=== PATIENT | female | born 1940 | race Caucasian/White ===

== ENCOUNTER 2016-09-21 09:45 | Day surgery (SDC) | payer MEDICARE ==
[~2016-09-21] VITALS: Ht 167.6 cm; Wt 95.2 kg
[~2016-09-21 09:45] MED LIST: ASPI-973 PO; CALC-78 PO; CeFAZolin Inj 2 GM in IV Premix 1 EACH IV ONE; DICL75TA6 PO; IRON18TA PO; LACT1CAP67 PO; LEFL20TA18 PO; LISI10TA PO; METF500T4 PO; MIRA50TA PO; MULT-1018 PO; OMEP20CA11 PO; PIOG30TA2 PO; SULF1TAB34 PO
[2016-09-21] MEDS ORDERED: fentaNYL-PF 50 mCg/mL 2 mL Inj ONE (09:46)
[2016-09-21] MEDS: Lactated Ringer's 1,000 ML IV SCH ×2 (09:59→10:52)
[2016-09-21] MEDS ORDERED: CIPR250T3 PO (10:03)
[2016-09-21] MEDS ORDERED: OXYB10TA PO (10:03)
[2016-09-21 10:09] VITALS: BP 134/65; PULSE 99; RESP 17; O2SAT 92
--- NOTE | 2016-09-21 10:41 | PCM.HPANE ---
Patient Data Date of Service: Sep 21, 2016 Surgeon Admitting Provider: Attending Provider:Patricia Good MD Primary Care Physician:Enid Oseguera Other Provider:Carlyn Sánchez Anesthesia Reason for Visit Urge Incontinence, Urinary Frequency Ht/WT & BMI Height (Feet): 5 Height (Inches): 6 Weight (Kilograms): 95.2 Body Mass Index 33.00 Allergies Coded Allergies: No Known Allergies (Unverified , 09/20/16) Past Anesthesia History Anesthesia History: Denies:: Abnormal Airway, Anesthesia Reactions, Fam Anesthesia Reaction, Fam Malignant Hypertherm, Malignant Hyperthermia Diabetes History Hx Diabetes?: Yes Type of Diabetes: Type II Glycemic Control: Oral Medication Current Bedside Blood Glucose: 97 MRSA MRSA: No Medications Blood Thinner: Aspirin Hypertension Medication: Yes (LISINOPRIL) Home Meds Incl Beta Vannesa: No Reported Medications Oxybutynin Chloride ER 10 Mg Tab.er.2410 Mg PO DAILY #90 09/21/16 Ciprofloxacin 250 Mg Kvzorr481 Mg PO BID #14 09/21/16 Lactobacillus Combination No.4 (Probiotic)1 Each Capsule1 Each PO DAILY 09/20/16 Omeprazole 20 Mg Capsule.dr20 Mg PO DAILY Ref 0 09/20/16 Multivitamin (Multi Vitamin Daily)1 Each Tablet1 Each PO DAILY 30 Days Ref 0 09/20/16 Metformin 500 Mg Qvbnfz444 Mg PO BID Ref 0 09/20/16 Lisinopril 10 Mg Odzyyr94 Mg PO DAILY 30 Days Ref 0 09/20/16 Leflunomide 20 Mg Qmxjwz88 Mg PO DAILY 09/20/16 Iron 18 Mg Dbyudv79 Mg PO DAILY 09/20/16 Diclofenac ER 75 Mg Dbogxe98 Mg PO BID 09/20/16 Calcium Carbonate/Vitamin D3 (Calcium 500 + Vit D Caplet)1 Each Tablet1 Each PO DAILY 09/20/16 Sulfamethoxazole/Trimeth 400-80 mg (Bactrim 400-80 mg)1 Each Tablet1 Tablet PO BID Ref 0 09/20/16 Aspirin 81 Mg Lnjaar21 Mg PO DAILY Ref 0 09/20/16 Pioglitazone (Actos)30 Mg Rmunap50 Mg PO DAILY Ref 0 09/20/16 Discontinued Reported Medications Mirabegron ER (Myrbetriq)50 Mg Oamctu77 Mg PO DAILY 09/20/16 History History of ENT Problems?: No HEENT History: Denies:: Abnormal Airway Teeth Condition: Tooth Decay Hx of Heart Problems?: Yes Cardiovascular History: Positive for:: Hypertension (HYPERLIPIDEMIA) Denies:: Chest Pain Heart Murmur Other Cardiac History: hyperlipidemia; no SOB Hx of Respiratory Problem?: No Respiratory History: Denies:: Use of C-PAP Machine Hx Neurologic Problems?: No Neurological History: Denies:: CVA Seizures Hx of GI Problems?: Yes Gastrointestinal History: Positive for:: Gastroesphageal Reflux (HX PUD W/ ESOPHAGEAL ULCERATION) Other GI Pertinent History: HX OF C. DIFF; esophageal ulcer Hx of Problems?: Yes Other Pertinent History: C/OF LUTS-NOCTURIA Female Hx: Denies:: Currently Skin History: Denies:: History Skin Disorders? Pressure Ulcers Hx Musculoskeletal Problems?: Yes Musculoskeletal History: Positive for:: Degenerative Joint Osteoarthritis Denies:: Back Injury (C/OF BACK PAIN) Hx of Psycho/Social Problems?: No Hx Surgeries?: No Hx Any Other Health Problems?: Yes Other History: Denies:: Cancer Endocrine Disease Hospitalization Thyroid Disease History Blood Transfusions: Denies:: Blood Transfusions Hx Diabetes: YesBedside Blood Glucose: 97 Hx Alcohol Use: NoHx Substance Use: No Smoking Status: Never Smoker Stop/Bang S-Snoring: Do You Snore Loudly: No T-Tired: feel tired, fatigued: No O-Obsered: Observed not breath: No P-Blood Pressure: treated: Yes B- Body Mass Index > 35 kg/m2: No A- Age over 50: Yes N- Neck Large Circumference: No G- Gender Male: No HEIDI Total Score: 2 HEIDI Risk Assessment: Low Risk, <3 Yes Risk Assessment Category Category 1A: Patient has history of documented sleep apnea, and HAS NOT received any narcotic, sedative or anesthesia administration during this stay. Category 1B: Patient has history of documented sleep apnea, and HAS received any narcotic , sedative or anesthesia administration during this stay Category 2: Patient has SUSPECTED Obstructive Sleep Apnea, and HAS received any narcotic , sedative or anesthesia administration during this stay. Category 3: Patient has SUSPECTED Obstructive Sleep Apnea and HAS NOT received narcotic, sedative or anesthesia administration during this stay. Category 4: Outpatient in Procedural Areas with known sleep apnea or who screen positive for High Risk via the STOP/BANG questionnaire. Exam Exam Vital Signs Vital Signs Date Time Temp Pulse Resp B/P Pulse Ox O2 Delivery O2 Flow Rate FiO2 09/21/16 10:09 36.1 99 17 134/65 92 Room Air General Appearance: Alert, Oriented X3, Cooperative, No Acute Distress HEENT/AIRWAY: MP 3, Neck Movement (FROM, SHORT, THICK), Mouth Opening (<3), Other (TMD<3) Lungs: Diminished (BIBASILAR SEVERELY DIMINISHED) Heart: Exam Unremarkable, Regular Rate/Rhythm, Normal S1, Normal S2 Meds/Labs/Diagnostics Admission Meds Current Medications Lactated Ringer's (Lr) 1,000 ml @ 120 mls/hr Q8H20M IV Last administered on t 09:59; Start 09/21/16 at 05:00; Stop 09/21/16 at 13:19 Bedside Blood Glucose: 97 Plan Impression Patient chart reviewed, patient interviewed and anesthestic plan with risks, benefits, and alternatives discussed, and informed consent obtained. NPO Status: 09/20/16 ASA Physical Status: ASA3 Severe Disease Anesthetic Plan: MAC Bene/Risks/Altern/Consents: Yes HP Complete Prior to Induction: Yes Other Awareness during MAC addressed. Possible need to converse with surgeon during procedure addressed. GA backup addressed. Chalo Haq MD Sep 21, 2016 10:41
[2016-09-21] MEDS ORDERED: Bupivacaine-MPF 0.5% W/EPI 30 mL Inj INFILTRATE ONE (11:09)
[2016-09-21] MEDS ORDERED: Gentamicin 40 mg/mL 2 mL Inj IRRIGATION ONE (11:09)
[2016-09-21] MEDS ORDERED: Vancomycin 1,000 mg Inj IRRIGATION ONE (11:10)
[2016-09-21] MEDS ORDERED: HYDROcodone-APAP 5-325 mg Tablet PO PRN (12:05)
[2016-09-21] MEDS ORDERED: Ondansetron 8 mg ODT Tablet PO PRN (12:05)
[2016-09-21 12:10] VITALS: BP 145/78; PULSE 97; RESP 16; O2SAT 92
[2016-09-21 13:00] VITALS: PULSE 88; RESP 16; O2SAT 90
[2016-09-21 13:40] VITALS: BP 100/81; PULSE 80; RESP 16; O2SAT 95
--- NOTE | 2016-09-21 17:52 | PCM.ANEP2 ---
Post Anesthesia Evaluation ASA/CMS Post Anesthesia VS in Patient's Normal Range?: Yes Resp Stable; Airway Patent?: Yes CV Function & Hydration Stable: Yes Mental Status Recovered?: Yes Pain control Satisfactory?: Yes N/V Control Satisfactory?: Yes Chalo Haq MD Sep 21, 2016 17:52
--- NOTE | 2016-09-21 17:52 | PCM.ANEP1 ---
Post Anesthesia Phase 1 PACU Phase 1 Assessment Date of Service: Sep 21, 2016 Vital Signs Vital Signs Date Time Temp Pulse Resp B/P Pulse Ox O2 Delivery O2 Flow Rate FiO2 09/21/16 13:40 80 16 100/81 95 Room Air 09/21/16 13:00 88 16 90 Room Air 09/21/16 12:10 36.9 97 16 145/78 92 Room Air 09/21/16 10:09 36.1 99 17 134/65 92 Room Air Anesthetic Administered: MAC Level of Alertness: Awake, talking CARRASCO's with Equal Strength: Yes Pain: No Pain Scale Score: 0 Nausea or Vomiting: No Oxygen Delivery: Simple Mask Lungs: Diminished (BIBASILAR SEVERELY DIMINISHED) Chalo Haq MD Sep 21, 2016 17:52
--- NOTE | 2016-09-22 09:43 | OP ---
[address] [address] OPERATIVE REPORT PATIENT: AALIYAH GOLDEN : 1940 MR#: [id number] ADMIT: 09/21/2016 JOB ID: [id number] DATE OF SURGERY: 09/21/2016 PROCEDURE NAME: 1 Stage 1 InterStim implant to include transforaminal placement of a sacral neural electrode. 2 fluoroscopy imaging and guidance SURGEON: Patricia Good MD. ANESTHESIA: IV sedation, local with monitored anesthesia care. PREOPERATIVE DIAGNOSIS(ES): Intractable urinary urgency, frequency, urge incontinence, soaking multiple pads a day. Very frustrated. Failing multiple medications. Interested in SNM therapy. POSTOPERATIVE DIAGNOSIS(ES): Intractable urinary urgency, frequency, urge incontinence, soaking multiple pads a day. Very frustrated. Failing multiple medications. Interested in SNM therapy. PROCEDURE IN DETAIL: After appropriate informed consent was obtained, the patient was brought to the operating room. She was made comfortable in a prone position. All pressure points carefully padded. Cleaned, prepped, and draped in the usual sterile fashion. Fluoroscope was brought in. Bony landmarks were identified. We used a half/half mixture of lidocaine and Marcaine for local anesthesia. We used a finder needle to traverse ultimately the right S3 sacral foramen. Testing revealed good responses on toes and Derek to indicate S3 response. This was converted in Seldinger fashion over to a quadripolar electrode. Once the leads were deployed, we were able to get good responses at low thresholds on all four electrodes with good fluoroscopic appearance. The tines were allowed to deploy hoping to lock the lead into place. We created a pocket below the iliac crest on the right tunneling the lead out to the distal end of it. We then made a connection to the extension wire, the distal end of which was tunneled out to the patient's left maximum distance from the incision itself. The hemostasis achieved with electrocautery. We irrigated out the wounds copiously with vancomycin and gentamicin solution and then closed in layers including a layer of running 2-0 Vicryl suture, a layer of running 4-0 Monocryl. Benzoin and Steri-Strips from the wounds. The patient tolerated procedure very well, was awakened and taken back to the one-day surgery area prior to discharge to home. JULITOD
[2016-09-30] MEDS ORDERED: SULF-239 PO (12:15)
[2016-09-30] MEDS ORDERED: HYDR-3740 PO (12:15)
== END 2016-09-21 23:59 | disposition home or self-care (01) ==
LOC: SAS 09:45
PROVIDERS: ATTEND Urology
DX: N39.41 Urge incontinence (principal); R35.0 Frequency of micturition; I10 Essential (primary) hypertension; E78.5 Hyperlipidemia, unspecified; E11.9 Type 2 diabetes mellitus without complications; K21.9 Gastro-esophageal reflux disease without esophagitis; M19.90 Unspecified osteoarthritis, unspecified site; E66.9 Obesity, unspecified; Z68.35 Body mass index [BMI] 35.0-35.9, adult; M54.5 Low back pain; Z79.82 Long term (current) use of aspirin; Z79.84 Long term (current) use of oral hypoglycemic drugs; Z87.891 Personal history of nicotine dependence
CPT/HCPCS: 64581; 76000; C1778; J0690; J1580; J2250; J3010; J3370; J7120

== ENCOUNTER 2016-10-05 07:27 | Day surgery (SDC) | payer MEDICARE ==
[~2016-10-05] VITALS: Ht 167.6 cm; Wt 96.7 kg
[~2016-10-05 07:27] MED LIST changes: +CIPR250T3 PO; -CeFAZolin Inj 2 GM in IV Premix 1 EACH IV ONE; +CeFAZolin Inj 2 GM in IV Premix 1 EACH IV SCH; +HYDR-3740 PO; -MIRA50TA PO; +OXYB10TA PO
[2016-10-05] MEDS ORDERED: Propofol 10,000 mCg/mL 20 mL Inj ONE (07:28)
[2016-10-05] MEDS ORDERED: Ketamine 10 mg/mL 20 mL Inj ONE (07:28)
[2016-10-05] MEDS: Lactated Ringer's 1,000 ML IV SCH ×2 (07:36→09:26)
[2016-10-05] MEDS ORDERED: Lactated Ringer's 500 ML IV PRN (07:43)
[2016-10-05] MEDS ORDERED: Lactated Ringer's 1,000 ML IV SCH (07:43)
[2016-10-05] MEDS ORDERED: Labetalol 5 mg/mL 4 mL Inj IV PRN (07:45)
[2016-10-05] MEDS ORDERED: Ondansetron 2 mg/mL 2 mL Inj IVPUSH PRN (07:45)
[2016-10-05] MEDS ORDERED: Phenylephrine 10,000 mCg/mL Inj IVPUSH PRN (07:45)
[2016-10-05] MEDS ORDERED: fentaNYL-PF 50 mCg/mL 2 mL Inj IVPUSH PRN (07:45)
[2016-10-05] MEDS ORDERED: hydrALAZINE 20 mg/mL Inj IVPUSH PRN (07:45)
[2016-10-05] MEDS ORDERED: Dexamethasone 4 mg/mL Inj IVPUSH PRN (07:45)
[2016-10-05] MEDS ORDERED: MetoCLOpramide 5 mg/mL 2 mL Inj IVPUSH PRN (07:45)
[2016-10-05] MEDS ORDERED: EPHEDrine Sulfate 50 mg/mL Inj IVPUSH PRN (07:45)
[2016-10-05] MEDS ORDERED: HYDROmorphone 1 mg/mL Inj IVPUSH PRN (07:45)
[2016-10-05 07:49] VITALS: BP 137/83; PULSE 85; RESP 18; O2SAT 91
--- NOTE | 2016-10-05 09:25 | PCM.HPANE ---
Patient Data Date of Service: Oct 05, 2016 Surgeon Admitting Provider: Attending Provider:Patricia Good MD Primary Care Physician:Enid Oseguera Other Provider:Carlyn Sáncehz Anesthesia Reason for Visit Urge Incontinence, Urinary Frequency Ht/WT & BMI Height (Feet): 5 Height (Inches): 6.00 Weight (Kilograms): 96.700 Body Mass Index 34.00 Allergies Coded Allergies: No Known Allergies (Unverified , 09/20/16) Past Anesthesia History Anesthesia History: Denies:: Abnormal Airway, Anesthesia Reactions, Fam Anesthesia Reaction, Fam Malignant Hypertherm, Malignant Hyperthermia Diabetes History Hx Diabetes?: Yes Type of Diabetes: Type II Glycemic Control: Oral Medication Current Bedside Blood Glucose: 122 MRSA MRSA: No Medications Blood Thinner: Aspirin Home Meds Incl Beta Vannesa: No Reported Medications Hydrocodone-Acetaminophen 10-325 mg 1 Each Tablet1 Tablet PO PRN #15 09/30/16 Oxybutynin Chloride ER 10 Mg Tab.er.2410 Mg PO DAILY #90 09/21/16 Ciprofloxacin 250 Mg Ysgmaq199 Mg PO BID #14 09/21/16 Lactobacillus Combination No.4 (Probiotic)1 Each Capsule1 Each PO DAILY 09/20/16 Omeprazole 20 Mg Capsule.dr20 Mg PO DAILY Ref 0 09/20/16 Multivitamin (Multi Vitamin Daily)1 Each Tablet1 Each PO DAILY 30 Days Ref 0 09/20/16 Metformin 500 Mg Jieuor713 Mg PO BID Ref 0 09/20/16 Lisinopril 10 Mg Hzuuvm50 Mg PO DAILY 30 Days Ref 0 09/20/16 Leflunomide 20 Mg Dssbtp65 Mg PO DAILY 09/20/16 Iron 18 Mg Pyaesq24 Mg PO DAILY 09/20/16 Diclofenac ER 75 Mg Pibbpp71 Mg PO BID 09/20/16 Calcium Carbonate/Vitamin D3 (Calcium 500 + Vit D Caplet)1 Each Tablet1 Each PO DAILY 09/20/16 Sulfamethoxazole/Trimeth 400-80 mg (Bactrim 400-80 mg)1 Each Tablet1 Tablet PO BID Ref 0 09/20/16 Aspirin 81 Mg Jvkbdy43 Mg PO DAILY Ref 0 09/20/16 Pioglitazone (Actos)30 Mg Yksqpi21 Mg PO DAILY Ref 0 09/20/16 History History of ENT Problems?: No HEENT History: Denies:: Abnormal Airway Hx of Heart Problems?: Yes Cardiovascular History: Positive for:: Hypertension (HYPERLIPIDEMIA) Denies:: Chest Pain Heart Murmur Hx of Respiratory Problem?: No Respiratory History: Denies:: Use of C-PAP Machine Hx Neurologic Problems?: No Neurological History: Denies:: CVA Seizures Hx of GI Problems?: Yes Gastrointestinal History: Positive for:: Gastroesphageal Reflux (HX PUD W/ ESOPHAGEAL ULCERATION) Hx of Problems?: Yes Female Hx: Denies:: Currently Skin History: Denies:: History Skin Disorders? Pressure Ulcers Hx Musculoskeletal Problems?: Yes Musculoskeletal History: Positive for:: Degenerative Joint Denies:: Back Injury (C/OF BACK PAIN) Hx of Psycho/Social Problems?: No Hx Surgeries?: No Hx Any Other Health Problems?: Yes Other History: Denies:: Cancer Endocrine Disease Hospitalization Thyroid Disease History Blood Transfusions: Denies:: Blood Transfusions Hx Diabetes: YesBedside Blood Glucose: 122 Hx Alcohol Use: NoHx Substance Use: No Smoking Status: Never Smoker Stop/Bang Treated for Sleep Apnea?: No Do You Have a CPAP Machine?: No S-Snoring: Do You Snore Loudly: No T-Tired: feel tired, fatigued: No O-Obsered: Observed not breath: No P-Blood Pressure: treated: Yes B- Body Mass Index > 35 kg/m2: No A- Age over 50: Yes N- Neck Large Circumference: No G- Gender Male: No HEIDI Risk Assessment: Low Risk, <3 Yes Risk Assessment Category Category 1A: Patient has history of documented sleep apnea, and HAS NOT received any narcotic, sedative or anesthesia administration during this stay. Category 1B: Patient has history of documented sleep apnea, and HAS received any narcotic , sedative or anesthesia administration during this stay Category 2: Patient has SUSPECTED Obstructive Sleep Apnea, and HAS received any narcotic , sedative or anesthesia administration during this stay. Category 3: Patient has SUSPECTED Obstructive Sleep Apnea and HAS NOT received narcotic, sedative or anesthesia administration during this stay. Category 4: Outpatient in Procedural Areas with known sleep apnea or who screen positive for High Risk via the STOP/BANG questionnaire. Exam Exam Vital Signs Vital Signs Date Time Temp Pulse Resp B/P Pulse Ox O2 Delivery O2 Flow Rate FiO2 10/05/16 07:49 36.7 85 18 137/83 91 Room Air General Appearance: Alert, Oriented X3, Cooperative, No Acute Distress HEENT/AIRWAY: MP 2 Lungs: Clear to Auscultation, Normal Air Movement Heart: Exam Unremarkable, Regular Rate/Rhythm, No Murmurs/Rubs/Gallops Meds/Labs/Diagnostics Admission Meds Current Medications Lactated Ringer's (Lr) 1,000 ml @ 120 mls/hr Q8H20M IV Last administered on t 07:36; Start 10/05/16 at 05:00; Stop 10/05/16 at 13:19 Bedside Blood Glucose: 122 Plan Impression Patient chart reviewed, patient interviewed and anesthestic plan with risks, benefits, and alternatives discussed, and informed consent obtained. NPO Status: 10/04 at 1900 ASA Physical Status: ASA2 Mod Systemic Disease Anesthetic Plan: MAC Bene/Risks/Altern/Consents: Yes HP Complete Prior to Induction: Yes Dereje Smith MD Oct 05, 2016 09:25
[2016-10-05] MEDS ORDERED: Bupivacaine-MPF 0.5% W/EPI 30 mL Inj INFILTRATE ONE (09:40)
[2016-10-05] MEDS ORDERED: Vancomycin 1,000 mg Inj IRRIGATION ONE (09:41)
[2016-10-05] MEDS ORDERED: Gentamicin 40 mg/mL 2 mL Inj IRRIGATION ONE (09:41)
[2016-10-05 10:05] VITALS: BP 129/69; PULSE 88; RESP 14; O2SAT 96
[2016-10-05] MEDS ORDERED: HYDROcodone-APAP 5-325 mg Tablet PO PRN (10:05)
[2016-10-05] MEDS ORDERED: Ondansetron 8 mg ODT Tablet PO PRN (10:05)
[2016-10-05 10:30] VITALS: O2SAT 94
--- NOTE | 2016-10-05 10:31 | PCM.ANEP2 ---
Post Anesthesia Evaluation ASA/CMS Post Anesthesia VS in Patient's Normal Range?: Yes Resp Stable; Airway Patent?: Yes CV Function & Hydration Stable: Yes Mental Status Recovered?: Yes Pain control Satisfactory?: Yes N/V Control Satisfactory?: Yes Dereje Smith MD Oct 05, 2016 10:31
[2016-10-05 11:05] VITALS: BP 127/76; PULSE 81; RESP 17; O2SAT 98
--- NOTE | 2016-10-06 23:29 | OP ---
[address] [address] OPERATIVE REPORT PATIENT: AALIYAH GOLDEN : 1940 MR#: [id number] ADMIT: 10/05/2016 JOB ID: [id number] DATE OF SURGERY: 10/05/2016 PROCEDURE NAME: Stage 2 InterStim implant to include IPG implantation and complex initial programming and setup of the device. SURGEON: Patricia Good MD. ANESTHESIA: Local with monitored anesthesia care and IV sedation. PREOPERATIVE DIAGNOSIS(ES): Intractable urinary urgency, frequency, urge incontinence. POSTOPERATIVE DIAGNOSIS(ES): Intractable urinary urgency, frequency, urge incontinence. INDICATIONS: The patient is a 76-year-old woman with a longstanding history of severe lower urinary tract symptoms refractory to numerous treatment modalities electing trial of InterStim therapy for her longstanding difficulties. She is status post staged testing, September 21, 2016. Had outstanding results with better than 75% improvement in her urgency, frequency, and urge incontinence, electing to proceed with full implant. PROCEDURE IN DETAIL: After appropriate informed consent was obtained, the patient was brought to the operating room. She received IV antibiotics prior to onset of procedure. She was then comfortable in the prone position. All pressure points carefully padded, cleaned, prepped, and draped in the usual sterile fashion. Half to half mixture of lidocaine and Marcaine was used for local anesthesia. The right-sided pocket was infiltrated and opened up sharply, bluntly. The connection to the extension wire was identified. The distal end of that wire was cut allowing it to be removed from the patient. The ratcheted screwdriver was used to remove the proximal end of the extension wire exposing just the distal end of the permanent lead. The pocket itself was irrigated out. Was enlarged sharply, bluntly with electrocautery to accommodate the size of Medtronic 2 IPG. Hemostasis was achieved with electrocautery. The wound was irrigated out copiously with vancomycin and gentamicin solution. Made a connection to the Medtronic 2 IPG. Gentle tug revealed a good connection, fit nicely into the pocket itself. It was placed in and the wound was closed in a layer of 2-0 Vicryl sutures, a layer of 4-0 Monocryl, benzoin, and Steri-Strips. The patient was taken back to the one-day surgery area where the device itself was turned on. It was set up initially with a rate of 14, pulse width of 210. Program 0 was set up at 0 negative and 3 positive. Program 2 was 1 negative and 3 positive. Program 3 was 2 negative and 0 positive. Program 4 was 3 negative and 0 positive. Patient felt sensation at appropriate locations, tolerated the procedure very well.
== END 2016-10-05 23:59 | disposition home or self-care (01) ==
LOC: SAS 07:27 → EDUNIT# 11:00 → SAS 23:59
PROVIDERS: ATTEND Urology
DX: N39.41 Urge incontinence (principal); R35.0 Frequency of micturition; E11.9 Type 2 diabetes mellitus without complications; I10 Essential (primary) hypertension; K21.9 Gastro-esophageal reflux disease without esophagitis; Z79.82 Long term (current) use of aspirin; Z79.899 Other long term (current) drug therapy